=== PATIENT | male | born 1970 | race Caucasian/White ===

== ENCOUNTER → 2021-10-12 | Outpatient (CLI) | payer OTHER ==
[2014-12-01 11:44] VITALS: BP 138/94
[~2021-10-12] MED LIST: ALPR0.5T PO; AMLO-186 PO; DEXT10TA23 PO; OLME40TA12 PO; OMEP40CA7 PO; OXYC-325 PO; SERT25TA PO
== END ==
LOC: LAB 13:34
PROVIDERS: ATTEND Surgery
DX: Z01.812 Encounter for preprocedural laboratory examination (principal); Z20.822 Contact with and (suspected) exposure to COVID-19
CPT/HCPCS: U0003; U0005

== ENCOUNTER → 2021-10-16 | Day surgery (SDC) | payer OTHER ==
[~2021-10-16] VITALS: Ht 165.1 cm; Wt 104.5 kg
[~2021-10-16] MED LIST changes: +ACETAMINOPHEN 500 MG TABLET PO PRN; +BUPIVACAINE-EPI 0.25%-1:200000 MPF 30 ML VIAL. ONE; +DEXAMETHASONE SOD PHOS 4 MG/ML VIAL ONE; +FAMOTIDINE 20 MG/2 ML VIAL IVP ONE; +HYDROmorphone 2 MG/ML VIAL ONE; +IV RINGERS,LACTATED 1000ML 1,000 ML IV SCH; +MORPHINE SULFATE 2 MG/ML INJ. ONE; +NEOSTIGMINE METHYLSULFATE 5 MG/5 ML SYRINGE. ONE; +ONDANSETRON PF 4 MG/2 ML VIAL. ONE; +PROCHLORPERAZINE 10 MG/2 ML VIAL. IVP PRN; +PROCHLORPERAZINE 10 MG/2 ML VIAL. ONE; +PROPOFOL 10 MG/ML (20ML) VIAL. IV ONE; +ROCURONIUM 50 MG/5 ML VIAL. ONE; +SURGICEL HEMOSTAT 4X8 EACH. ONE; +fentaNYL PF VIAL 100 MCG/2 ML VIAL IVP PRN; +fentaNYL PF VIAL 100 MCG/2 ML VIAL ONE; +oxyCODONE/APAP 5/325 1 TAB TABLET PO ONE
[2021-10-16 13:22] VITALS: BP 140/81
--- NOTE | 2021-10-16 17:24 | PDOC4 ---
Operative Note Operative Note Date: October 16, 2021 at 1720 Preoperative diagnosis: Biliary dyskinesia Postoperative diagnosis: Same Procedure: Laparoscopic cholecystectomy with fluorescein cholangiography Surgeon: Thompson Specimen: Gallbladder Dictation: Patient is a 51-year-old male who is had right upper quadrant abdominal pain and a HIDA scan showing ejection fraction of only 8%. Procedure of laparoscopic cholecystectomy was explained to the patient detail risk benefits were also discussed including bleeding infection injury to intra- abdominal contents possible necessitating further open operations alternatives this procedure also discussed with the patient who seemed to understand and gave a verbal written consent to have procedure performed. Patient was taken to the operating room placed in supine position general anesthesia was initiated once patient was sleeping intubated his abdomen was prepped and draped usual sterile fashion using ChloraPrep. Area just below the umbilicus was injected with quarter percent Marcaine with epinephrine incision was made 11 blade scalpel and a varies needle was placed within the abdomen creating pneumoperitoneum once this was complete the millimeter port was placed in a 5 mm camera is placed within the abdomen. The abdomen was inspected was noted that there is quite a few adhesions to the gallbladder from the omentum. A 5 mm port was placed in the epigastrium and a 5 mm port was placed in the right midabdomen and a 5 mm port was placed in the right lateral abdomen all under direct visualization. The dome of the gallbladder was grasped and the omental adhesions were taken down with blunt dissection it was noted that while taking these adhesions down the gallbladder was quite friable and tore in the midportion. No stones were noted. Adhesions were taken down to the infundibulum of the gallbladder the infundibular gallbladder is grasped retracted laterally exposing the triangle adherent tissues the triangle were taken down trying to take great care not to tear any more of the gallbladder was quite again thin and very friable the infundibulum of the gallbladder to the cystic duct was visualized was quite dilated. The 5 mm epigastric port was changed out for a 12 mm and a 12 mm hemolock clips were used to clip the cystic duct and cystic artery x2 and then transected with the Endo Mary scissors. Due to the friable nature of the gallbladder the fluorescein dye was not helpful and assessing any obstruction of the common bile duct due to spillage of bile. The gallbladder is taken off the liver with hook electrocautery placed in Endo Catch bag removed from the umbilic us right upper quadrant is irrigated and suctioned dry with copious amounts normal saline. Hemostasis deemed to be appropriate the pneumoperitoneum was reduced all ports removed the fascial defect at the umbilicus was closed with a [id number] 0 Vicryl suture and the fascial defect at the 12 mm port and epigastric was closed with a single interrupted 0 Vicryl suture skin was r eapproximated 4-0 subcuticular Monocryl Mastisol Steri-Strips and island dressings were applied. Patient was awakened and extubated in the operating room taken to recovery in stable condition all sponge instrument needle counts listed as correct estimated blood loss 20 mL KATELYNN MELVIN MD Oct 16, 2021 17:24
[2021-10-16] MEDS: fentaNYL PF VIAL 100 MCG/2 ML VIAL IVP PRN ×2 (17:37→17:48)
[2021-10-16] MEDS: MORPHINE SULFATE 2 MG/ML INJ. IVP PRN ×2 (17:38→17:49)
[2021-10-16] MEDS: HYDROmorphone 2 MG/ML VIAL IVP PRN ×2 (18:09→18:20)
[2021-10-16] MEDS: oxyCODONE/APAP 5/325 1 TAB TABLET PO ONE ×2 (18:30→19:00)
[2021-10-16 18:31] VITALS: BP 169/88
--- NOTE | 2021-10-18 17:11 | PATHOLOGY ---
[facility] Accession Number: [id number] . 01 Material submitted: . gallbladder - GALLBLADDER AND CONTENTS . 01 Clinical history: . BILIARY DYSKINESIA LAP LEON . 02 Diagnosis: Gallbladder, excision: - Minimal chronic cholecystitis. - Negative for malignancy. ([facility]; 10/18/2021) QTP 10/18/2021 1231 Local . 02 Electronically signed: . Kostas Hager MD, Pathologist NPI- [id number] . 01 Gross description: . Fixative: Formalin Labeled: Gallbladder and contents Specimen received: Previously disrupted gallbladder Dimensions: 6.7 x 3.1 x 0.9 cm Serosa: Light vides-steele Lymph node: None identified Mucosa: Velvety and dark vides-green Average wall thickness: 0.2 cm Calculi: None identified Abnormalities: None identified . A1- Foreclosure Home Inspector body, fundus, and the cystic duct margin. ([facility]; 10/17/2021) [facility] 10/17/2021 1623 Local . 02 Pathologist provided ICD-10: K81.1 . 02 CPT . 643216 Specimen Comment: A courtesy copy of this report has been sent to [phone], [phone] Specimen Comment: [id number] Specimen Comment: Report sent to / DR STEELE Specimen Comment: A duplicate report has been generated due to demographic updates. Performed at: [facility] [address], [place] [id number] MD Alberto Aviles MD Phone: [phone] [facility]formed at: [facility] [address] [place], [place] [id number] MD Noe Reaves MD Phone: [phone]
== END | disposition home or self-care (01) ==
LOC: SURG 13:04
PROVIDERS: ATTEND Surgery
DX: K82.8 Other specified diseases of gallbladder (principal); K81.1 Chronic cholecystitis; I10 Essential (primary) hypertension; E78.00 Pure hypercholesterolemia, unspecified; K21.9 Gastro-esophageal reflux disease without esophagitis; F41.9 Anxiety disorder, unspecified; F90.9 Attention-deficit hyperactivity disorder, unspecified type; Z87.440 Personal history of urinary (tract) infections; Z79.899 Other long term (current) drug therapy; Z98.890 Other specified postprocedural states; Z82.49 Family history of ischemic heart disease and other diseases of the circulatory system
CPT/HCPCS: 47562; A4930; A6219; J0690; J0780; J1100; J1170; J2270; J2405; J2704; J2710; J3010; J3490; 88304; A4452; A4657